=== PATIENT | male | born 1955 | race Caucasian/White ===

== ENCOUNTER → 2016-09-09 | Emergency (ER) | payer OTHER ==
[2016-09-09 22:18] VITALS: BP 123/67; PULSE 69; TEMP 97.6; BMI 31.3
--- NOTE | 2016-09-09 23:34 | PDOC ---
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
== END | disposition left against medical advice (07) ==
LOC: JER 22:11
DX: Z53.21 Procedure and treatment not carried out due to patient leaving prior to being seen by health care provider (principal)
CPT/HCPCS: 99281-25

== ENCOUNTER 2017-11-13 16:28 | Emergency (ER) | payer OTHER ==
[2017-11-13 16:41] VITALS: BP 154/88; PULSE 102; TEMP 97.9; BMI 32.1
--- NOTE | 2017-11-13 16:59 | PDOC ---
History of Present Illness - History of Present Illness Initial Comments: 11/13/17 16:57 62 yo M HTN, prediabetes who p/w nausea and vomiting. 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 Nausea now improved. Also reports now resolved crampy mid-lower abdominal pain. Last BM today with absent BPR, nml stool pattern. Patient denies F,C, CP, SOB, urinary complaints, diarrhea, constipation, lightheadedness, weakness, sensory changes. PMHx: as noted above. Denies h/o abdominal surgery, endoscopy, or abnml colonoscopy. ROS: as noted SHx: Denies tobacco, IVDA. Occasional/Social Etoh. Allergies: NKDA <Artem Salguero - Last Filed: 11/13/17 18:58> <Vero Saldana - Last Filed: 11/13/17 19:43> - General Chief Complaint: Nausea/Vomiting Stated Complaint: PAIN Time Seen by Provider: 11/13/17 16:50 Past History - Past Medical History Hypercholesterolemia: Yes - Immunization History Immunization Up to Date: Yes - Suicide/Smoking/Psychosocial Hx Smoking Status: No Smoking History: Never smoked Have you smoked in the past 12 months: No Number of Cigarettes Smoked Daily: 0 Information on smoking cessation initiated: No Hx Alcohol Use: No Drug/Substance Use Hx: No Substance Use Type: None <Artem Salguero - Last Filed: 11/13/17 18:58> <Vero Saldana - Last Filed: 11/13/17 19:43> - Past Medical History Allergies/Adverse Reactions: Allergies Allergy/AdvReac Type Severity Reaction Status Date / Time No Known Allergies Allergy Verified 11/13/17 16:41 Home Medications: Ambulatory Orders Atorvastatin Ca [Lipitor] 20 mg PO HS 09/09/16 metFORMIN HCL [Glucophage -] 500 mg PO BID 09/09/16 Ondansetron [Zofran -] 4 mg PO BID #14 tablet 11/13/17 Review of Systems - Review of Systems Comments:: 11/13/17 16:58 GENERAL/CONSTITUTIONAL: No fever or chills. No weakness. HEAD, EYES, EARS, NOSE AND THROAT: No change in vision. No ear pain or discharge. No sore throat. CARDIOVASCULAR: No chest pain or shortness of breath RESPIRATORY: No cough, wheezing, or hemoptysis. GASTROINTESTINAL: No nausea, vomiting, diarrhea or constipation. GENITOURINARY: No dysuria, frequency, or change in urination. MUSCULOSKELETAL: No joint or muscle swelling or pain. No neck or back pain. SKIN: No rash NEUROLOGIC: No headache, vertigo, loss of consciousness, or change in strength/ sensation. ENDOCRINE: No increased thirst. No abnormal weight change HEMATOLOGIC/LYMPHATIC: No anemia, easy bleeding, or history of blood clots. ALLERGIC/IMMUNOLOGIC: No hives or skin allergy. <Jose MArtem - Last Filed: 11/13/17 18:58> *Physical Exam - Vital Signs Last Vital Signs Temp Pulse Resp BP Pulse Ox 97.9 F 102 H 18 154/88 96 11/13/17 16:39 11/13/17 16:39 11/13/17 16:39 11/13/17 16:39 11/13/17 16:39 - Physical Exam Comments: 11/13/17 16:58 GENERAL: Awake, alert, and fully oriented, in no acute distress HEAD: No signs of trauma, normocephalic, atraumatic EYES: PERRLA, EOMI, sclera anicteric, conjunctiva clear ENT: Hearing grossly normal, nares patent, oropharynx clear without exudates. Moist mucosa NECK: Normal ROM, supple, no lymphadenopathy, JVD, or masses LUNGS: No distress, speaks full sentences, clear to auscultation bilaterally HEART: Regular rate and rhythm, normal S1 and S2, no murmurs, rubs or gallops, peripheral pulses normal and equal bilaterally. ABDOMEN: Soft, portruberant, NDS, nontender, normoactive bowel sounds. No guarding, no rebound. No masses. Neg CVA ttp. EXTREMITIES : Normal inspection, Normal range of motion, no edema. No clubbing or cyanosis. SKIN: Warm, Dry, normal turgor, no rashes or lesions noted <Artem Salguero - Last Filed: 11/13/17 18:58> - Vital Signs Last Vital Signs Temp Pulse Resp BP Pulse Ox 97.9 F 102 H 18 154/88 96 11/13/17 16:39 11/13/17 16:39 11/13/17 16:39 11/13/17 16:39 11/13/17 16:39 <Vero Saldana - Last Filed: 11/13/17 19:43> ED Treatment Course - LABORATORY CBC & Chemistry Diagram: 11/13/17 17:23 11/13/17 17:23 <Jona Salgueroson - Last Filed: 11/13/17 18:58> - LABORATORY CBC & Chemistry Diagram: 11/13/17 17:23 11/13/17 17:23 - ADDITIONAL ORDERS Additional order review: Laboratory Results 11/13/17 11/13/17 18:09 17:23 Sodium 141 Potassium 4.4 Chloride 103 Carbon Dioxide 31 Anion Gap 7 L BUN 17 Creatinine 1.1 Creat Clearance w eGFR > 60 Random Glucose 105 D Calcium 9.1 Total Bilirubin 0.8 AST 44 H D ALT 79 H Alkaline Phosphatase 57 Creatine Kinase 165 Creatine Kinase Index 0.6 CK-MB (CK-2) 1.04 Troponin I < 0.02 Total Protein 7.9 Albumin 4.2 Lipase 89 11/13/17 17:23 RBC 5.15 MCV 88.5 MCHC 34.1 RDW 13.6 MPV 8.7 Neutrophils % 85.3 H D Lymphocytes % 6.7 L D Monocytes % 7.0 Eosinophils % 0.5 Basophils % 0.5 - Medications Given in the ED: ED Medications Discontinued Medications Generic Name Dose Route Start Last Admin Trade Name Freq PRN Reason Stop Dose Admin Sodium Chloride 1,000 mls @ 1,000 mls/hr 11/13/17 17:23 11/13/17 18:20 Normal Saline - IV 11/13/17 18:22 1,000 mls/hr ASDIR STA Administration Ondansetron HCl 4 mg 11/13/17 17:23 11/13/17 18:20 Zofran Injection IVPUSH 11/13/17 17:24 4 mg ONCE ONE Administration <Vero Saldana - Last Filed: 11/13/17 19:43> Medical Decision Making - Medical Decision Making 11/13/17 17:36 62 yo M HTN, prediabetes who p/w nausea and vomiting. HR 102, vitals otherwise wnl, AF. Abdomen non-tender. Symptoms now resolved. Presentation most likely 2/ 2 acute gastroenteritis. DDx: gastritis, colitis, diverticulitis. Low suspicion appendicitis, pancreatitis, mesenteric ischemia, AAA, Ao dissection, pyelonephritis. ED Course: CBC,CMP, Lipase EKG NS, Zofran 11/13/17 17:41 11/13/17 18:00 WBC: 11.5 , Neutrophils 85.3 % 11/13/17 18:03 CMP: Unremarkable Lipase: Neg 11/13/17 18:42 Patient tolerating PO intake of fluids. 11/13/17 18:46 EKG: NSR with absent STD, JORDI. Flattened T waves in lead AvL compared to ESCOBAR ( 2010). Nml axis and interval duration. Patient stable for d/c with return precautions. <Artem Salguero - Last Filed: 11/13/17 18:58> *DC/Admit/Observation/Transfer - Attestations Physician Attestion: 11/13/17 17:41 I attest to the information provided in this note. <Artem Salguero - Last Filed: 11/13/17 18:58> <Vero Saldana - Last Filed: 11/13/17 19:43> Diagnosis at time of Disposition: Vomiting Qualifiers: Vomiting type: unspecified Vomiting Intractability: intractable Nausea presence : with nausea Qualified Code(s): R11.2 - Nausea with vomiting, unspecified - Discharge Dispostion Condition at time of disposition: Stable - Prescriptions Prescriptions: Ondansetron [Zofran -] 4 mg PO BID #14 tablet - Patient Instructions Printed Discharge Instructions: DI for Vomiting -- Adult Additional Instructions: Please return to the emergency department with any new or worsening symptoms or concerns. Please follow up with your primary care physician within 72 hours. Can take oral Zofran as needed for nausea.
[2017-11-13] MEDS ORDERED: SODIUM CHLORIDE 1,000 ML IV STA (17:23)
[2017-11-13] MEDS ORDERED: ONDANSETRON 4 MG/2 ML VIAL IVPUSH ONE (17:23)
[2017-11-13 17:44] LABS: BASO % 0.5 % (0-2.0); EOS % 0.5 % (0-4.5); HEMATOCRIT 45.6 % (35.4-49); HEMOGLOBIN 15.5 GM/dL (11.7-16.9); LYMPH % 6.7 % (8-40); MCH 30.2 pg (25.7-33.7); MCHC 34.1 g/dl (32.0-35.9); MEAN CELL VOLUME 88.5 fl (80-96); MEAN PLT VOLUME 8.7 fl (7.5-11.1); NEUT % 85.3 % (42.8-82.8); PLATELET COUNT 206 K/MM3 (134-434); RBC 5.15 M/mm3 (4.00-5.60); RDW 13.6 % (11.9-15.9); WHITE BLOOD COUNT 11.5 K/mm3 (4.0-10.0)
[2017-11-13 17:50] LABS: ALBUMIN 4.2 g/dl (3.4-5.0); ALK PHOS 57 U/L (45-117); ANION GAP 7 (8-16); BILIRUBIN,TOTAL 0.8 mg/dL (0.2-1.0); BLOOD UREA NITROGEN 17 mg/dL (7-18); CALCIUM 9.1 mg/dL (8.5-10.1); CHLORIDE 103 mmol/L (98-107); CO2 31 mmol/L (21-32); CREATININE 1.1 mg/dL (0.7-1.3); GLUCOSE,RANDOM 105 mg/dL (74-106); LIPASE 89 U/L (73-393); SGPT/ALT 79 U/L (12-78); SODIUM 141 mmol/L (136-145); TOT PROT 7.9 g/dl (6.4-8.2)
[2017-11-13 17:51] LABS: POTASSIUM 4.4 mmol/L (3.5-5.1); SGOT/AST 44 U/L (15-37)
[2017-11-13] MEDS ORDERED: ONDANSETRON 4 MG/2 ML VIAL ONE (18:13)
--- NOTE | 2017-11-13 18:14 | PDOC ---
Attending Attestation - HPI HPI: 11/13/17 19:02 Mr. Solitario Shaffer is a 62 year old male with past medical history of HTN and Pre-DM presents to the emergency department with acute onset nausea and vomiting. The patient reports eating grilled eggplants around 1:30 pm followed by an onset of nausea and an episode of [id number]-[id number] emesis at home and another episode at the ED, accompanied with diaphoresis and lower abdominal cramping, without relief with tums. The patient's reports eating the similar food, but shes asymptomatic. Currently symptoms are improving. Denies fever or chills. Denies hematochezia or melena. Denies chest pain or shortness of breath. Denies Vertigo or lightheadedness. Denies leg pain or swelling. Denies bowel movement changes. Denies cough or rhinorrhea. Allergies: NKDA Social history: None reported Surgical history: None reported PCP: Dr. Nathaniel Bowers - Physicial Exam PE: 11/13/17 18:44 General: Well appearing, awake and alert, NAD. HEENT: NCAT, PERRL, EOMI, clear conjunctiva, anicteric, moist mucus membranes, clear oropharynx, no oral lesions.. Neck: neck supple, FROM Lungs: CTAB, normal and even respirations, no respiratory distress Heart: RRR, no murmurs, 2+ peripheral pulses throughout, no peripheral edema Abdomen: soft, obese, nontender. no peritoneal signs. Back: nontender, normal inspection and ROM MSK: no edema, HIDALGO x4, ROM intact. No clubbing or cyanosis. normal bulk and tone. Neuro: alert, oriented appropriately; no focal neurologic deficits. Skin: warm and well perfused, cap refill <2 sec, normal color - Medical Decision Making 11/13/17 18:44 Documentation prepared by Anna Monahan, acting as medical service technician for Vero Saldana MD. 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 At that time felt very nauseous, diaphoretic and uncomfortable lower abdominal pain/cramping. No etoh or drug use. no syncope, dizzy, cp or shortness of breath. DDx. gastroenteritis, food poisoning, pancreatitis, hepatitis, electrolyte/ metabolic derangements. ACS, angina. Vital signs reviewed, wnl. notable fo mild tachy from vomiting Plan: CBC, CMP, lipase. Trop. IVF, zofran. EKG. Prior notes reviewed, including admissions, discharges and consultations. laboratory results and imaging reviewed, basic labs and lytes wnl; clinically feels much improved, no abdominal tenderness, nonperitoneal, well appearing, VS improved, given IVF for hydration. EKG sinus rhythm at 94 bpm and not interval abnormalities, no segment depressions or elevations; nonspecific TWF in AVL and III.. prior EKG with ESCOBAR appearance. trop negative. reassuring, Heart score 2, low risk and one sufficient and reassuring neg trop with estimated MACE<1.7% at 30d.. Pt to be discharged in stable condition. Patient and family made aware of impression and plan, return precautions discussed (including but not limited to worsening pain or symptoms), fevers, or signs of infection, chest pain, respiratory distress, inability to tolerate oral intake, dehydration, syncope, or neurologic changes). Follow up with PMD and/or specialist as recommended, follow up information provided, take medications as instructed for duration of time. continue with supportive care, fluid hydration, rest, avoid triggers and precipitants. Rx zofran PRN, expectant management and reassurance. 11/13/17 19:03 11/13/17 19:04 <Vero Saldana - Last Filed: 11/13/17 19:05> Heart Score/ECG Review - History History: Slightly suspicious - Electrocardiogram EKG: Normal - Age Age: 45-65 - Risk Factors Risk Factors Heart Score: Yes Hx Hypertension, Yes Hx Diabetes Based on the list above the patient has:: 1-2 risk factors - Troponin Troponin: </= normal limit - Score Heart Score - Total: 2 - ECG Intrepretation Rhythm: Regular Rhythm - [place]: Normal - ST and T Non Specific ST-T Wave changes: Yes - ECG Impressions Comment:: 11/13/17 18:57 EKG sinus rhythm at 94 bpm and not interval abnormalities, no segment depressions or elevations; nonspecific TWF in AVL and III.. prior EKG with ESCOBAR appearance. <Vero Saldana - Last Filed: 11/13/17 19:05>
--- NOTE | 2017-11-14 13:29 | EKG ---
Test Reason : Blood Pressure : / mmHG Vent. Rate : 094 BPM Atrial Rate : 094 BPM P-R Int : 144 ms QRS Dur : 090 ms QT Int : 354 ms P-R-T Axes : 069 048 054 degrees QTc Int : 442 ms NORMAL SINUS RHYTHM NORMAL ECG WHEN COMPARED WITH ECG OF 01-SEP-2010 09:15, VENT. RATE HAS INCREASED BY 39 BPM QT HAS LENGTHENED Confirmed by NAOMY FORD MD ([id number]) on 11/14/2017 1:28:58 PM Referred By: Confirmed By:NAOMY FORD MD
== END 2017-11-13 19:15 | disposition home or self-care (01) ==
LOC: JER 16:28
PROC: 3E033GC Introduction of Other Therapeutic Substance into Peripheral Vein, Percutaneous Approach (ICD-10-PCS; principal; 2017-11-13)
DX: R11.2 Nausea with vomiting, unspecified (principal); I10 Essential (primary) hypertension; R73.03 Prediabetes; Z79.84 Long term (current) use of oral hypoglycemic drugs
CPT/HCPCS: 36415; 80053; 82550; 82553; 83690; 84484; 85025; 93005; 93010; 96374; 99282-25; J7030

== ENCOUNTER 2018-07-25 08:42 | Day surgery (SDC) | payer OTHER ==
[2018-07-24 14:11] VITALS: BMI 32.4
[2018-07-25 09:58] VITALS: TEMP 97.6
[2018-07-25 11:17] VITALS: BP 118/73; PULSE 58
== END 2018-07-25 10:40 | disposition home or self-care (01) ==
LOC: JASU-ENDO 08:42
PROVIDERS: ATTEND Internal Medicine Gastroenterology
PROC: 0DJD8ZZ Inspection of Lower Intestinal Tract, Via Natural or Artificial Opening Endoscopic (ICD-10-PCS; principal; 2018-07-25 09:00)
DX: Z12.11 Encounter for screening for malignant neoplasm of colon (principal); K64.8 Other hemorrhoids; K63.89 Other specified diseases of intestine; E11.9 Type 2 diabetes mellitus without complications; Z79.84 Long term (current) use of oral hypoglycemic drugs
CPT/HCPCS: 82962

== ENCOUNTER 2020-08-07 10:33 | Emergency (ER) | payer OTHER ==
[2020-08-07 10:43] VITALS: BP 137/81; PULSE 59; TEMP 98.2; BMI 31.8
[2020-08-07] MEDS ORDERED: TETRACAINE 0.5% OPHTH SOLN 2 ML BOTTLE ONE (11:28)
[2020-08-07] MEDS ORDERED: FLUORESCEIN NA 1 EA STRIP ONE (11:28)
[2020-08-07] MEDS ORDERED: TETRACAINE 0.5% HCL 0.6ML DROPPER.BOTTLE OS ONE (11:28)
[2020-08-07] MEDS ORDERED: FLUORESCEIN NA 1 EA STRIP OS ONE (11:29)
== END 2020-08-07 12:06 | disposition home or self-care (01) ==
LOC: JERFT 10:33
DX: H57.89 Other specified disorders of eye and adnexa (principal)
CPT/HCPCS: 99283-25

== ENCOUNTER 2023-07-25 21:10 | Emergency (ER) | payer OTHER ==
[2023-07-25 21:19] VITALS: BP 146/81; PULSE 62; RESP 20; TEMP 97.5; BMI 29.7
[2023-07-25] MEDS ORDERED: DIPHTH,PERTUSS(ACELL),TET 0.5 ML DISP.SYRIN IM ONE (23:32)
[2023-07-25] MEDS: DIPHTH,PERTUSS(ACELL),TET 0.5 ML DISP.SYRIN IM ONE (23:38)
== END 2023-07-25 23:41 | disposition home or self-care (01) ==
LOC: JERFT 21:10
PROC: 0XQKXZZ Repair Left Hand, External Approach (ICD-10-PCS; principal; 2023-07-25)
PROC: 3E0234Z Introduction of Serum, Toxoid and Vaccine into Muscle, Percutaneous Approach (ICD-10-PCS; 2023-07-25)
DX: S61.412A Laceration without foreign body of left hand, initial encounter (principal); W26.8XXA Contact with other sharp object(s), not elsewhere classified, initial encounter
CPT/HCPCS: 12002-25; 90471; 90715; 99284-25

== ENCOUNTER 2023-08-04 08:57 | Emergency (ER) | payer OTHER ==
[2023-08-04 09:08] VITALS: BP 150/59; PULSE 56; RESP 20; TEMP 98.1; BMI 29.0
== END 2023-08-04 09:32 | disposition home or self-care (01) ==
LOC: JER 08:57
DX: Z48.02 Encounter for removal of sutures (principal)
CPT/HCPCS: 99281-25

== ENCOUNTER 2023-11-09 20:41 | Emergency (ER) | payer OTHER ==
[2023-11-09 20:46] VITALS: BP 125/77; PULSE 62; RESP 18; TEMP 98
[2023-11-09] MEDS ORDERED: ACETAMINOPHEN 500 MG TABLET (FP) ONE (23:33)
[2023-11-09] MEDS: ACETAMINOPHEN 500 MG TABLET (FP) PO ONE (23:42)
== END 2023-11-10 00:04 | disposition home or self-care (01) ==
LOC: JERFT 20:41
DX: R07.89 Other chest pain (principal)
CPT/HCPCS: 71046-TC-FY; 93005; 93010; 99284-25